=== PATIENT | female | born 1965 | race Two or more races ===

== ENCOUNTER → 2016-11-22 | Outpatient (CLI) | payer OTHER ==
[2016-11-22 08:45] LABS: Urine Bilirubin Negative (Negative); Urine Blood Negative /uL (Negative); Urine Color Yellow (Yellow); Urine Glucose Normal (Normal); Urine Ketone Negative (Negative); Urine Mucus FEW (None Seen); Urine Nitrite Negative (Negative); Urine RBC 1 /hpf (0 - 4); Urine Squamous Epithelial Cell FEW /hpf (<5); Urine Urobilinogen Normal (Negative); Urine pH 5.5 (5.0-8.0)
[2016-11-22 09:17] LABS: Bilirubin, Total 0.7 mg/dL (0.2-1.0); Calcium 9.2 mg/dL (8.5-10.1); Potassium 3.9 mmol/L (3.5-5.1); Total Protein 7.6 g/dL (6.4-8.2)
[2016-11-22 09:24] LABS: Basophils # (auto) 0 uL; Basophils % (auto) 0.8 % (0.0-2.0); DEFINITIVE VIEW TRANSMISSION; Eosinophils # (auto) 0.2 uL; Eosinophils % (auto) 3.5 % (0.0-7.0); Hemoglobin 12.8 g/dL (12.2-16.2); Lymphocytes # (auto) 1.5 uL; Lymphocytes % (auto) 24.1 % (10.0-50.0); Mean Corpuscular Hemoglobin 25.4 pg (28.0-32.0); Mean Corpuscular Volume 79.3 fL (80.0-100.0); Mean Platelet Volume 8.4 fL (7.4-10.4); Monocytes # (auto) 0.4 uL; Monocytes % (auto) 5.8 % (0.0-12.0); Neutrophils % (auto) 65.8 % (37.0-80.0); Platelet Count (auto) 250 10^3/uL (140-450); Red Cell Distribution Width 14.4 % (11.6-16.0); White Blood Cell 6.1 10^3/uL (4.4-10.8)
== END | disposition home or self-care (01) ==
LOC: LAB 06:34
PROVIDERS: ATTEND Family Medicine
DX: F33.9 Major depressive disorder, recurrent, unspecified (principal); Z72.0 Tobacco use; E78.5 Hyperlipidemia, unspecified; Z00.00 Encounter for general adult medical examination without abnormal findings
CPT/HCPCS: 36415; 80053; 80061; 81001; 82306; 82607; 83036; 84443; 85025; 86300

== ENCOUNTER → 2016-12-20 | Outpatient (CLI) | payer OTHER ==
[2016-12-20 16:48] LABS: Basophils # (auto) 0 uL; Basophils % (auto) 0.3 % (0.0-2.0); DEFINITIVE VIEW TRANSMISSION; Eosinophils # (auto) 0.3 uL; Eosinophils % (auto) 3.1 % (0.0-7.0); Hematocrit 31.9 % (36.0-46.0); Hemoglobin 10.6 g/dL (12.2-16.2); Lymphocytes # (auto) 2.1 uL; Lymphocytes % (auto) 25.2 % (10.0-50.0); Mean Corpuscular Hgb Conc. 33.3 g/dL (32.0-36.0); Mean Corpuscular Volume 77.9 fL (80.0-100.0); Mean Platelet Volume 7.7 fL (7.4-10.4); Monocytes # (auto) 0.6 uL; Monocytes % (auto) 6.7 % (0.0-12.0); Neutrophils # (auto) 5.5 uL; Neutrophils % (auto) 64.7 % (37.0-80.0); Platelet Count (auto) 383 10^3/uL (140-450); Red Cell Distribution Width 15.8 % (11.6-16.0); White Blood Cell 8.5 10^3/uL (4.4-10.8)
== END | disposition home or self-care (01) ==
LOC: LAB 15:36
PROVIDERS: ATTEND Obstetrics & Gynecology
DX: N93.9 Abnormal uterine and vaginal bleeding, unspecified (principal)
CPT/HCPCS: 36415; 83001; 83002; 84443; 85025

== ENCOUNTER → 2017-02-12 | Outpatient (CLI) | payer OTHER ==
[2017-02-12 16:14] LABS: Basophils # (auto) 0 uL; DEFINITIVE VIEW TRANSMISSION; Eosinophils # (auto) 0.3 uL; Hemoglobin 12.8 g/dL (12.2-16.2); Monocytes # (auto) 0.5 uL
[2017-02-12 16:27] LABS: Basophils % (auto) 0.4 % (0.0-2.0); Eosinophils % (auto) 3.6 % (0.0-7.0); Hematocrit 39.2 % (36.0-46.0); Lymphocytes % (auto) 27.3 % (10.0-50.0); Mean Corpuscular Hemoglobin 26.8 pg (28.0-32.0); Mean Corpuscular Hgb Conc. 32.7 g/dL (32.0-36.0); Mean Corpuscular Volume 81.8 fL (80.0-100.0); Monocytes % (auto) 7.1 % (0.0-12.0); Neutrophils # (auto) 4.6 uL; Neutrophils % (auto) 61.6 % (37.0-80.0); Platelet Count (auto) 293 10^3/uL (140-450); White Blood Cell 7.4 10^3/uL (4.4-10.8)
[2017-02-12 16:43] LABS: Albumin 3.7 g/dL (3.4-5.0); BUN/Creatinine Ratio 14.3; Bilirubin, Total 0.4 mg/dL (0.2-1.0); Calcium 8.9 mg/dL (8.5-10.1); Potassium 3.8 mmol/L (3.5-5.1); Total Protein 7.3 g/dL (6.4-8.2)
[2017-02-12 17:05] LABS: Urine Bilirubin Negative (Negative); Urine Color Yellow (Yellow); Urine Glucose Normal (Normal); Urine Ketone Negative (Negative); Urine Nitrite Negative (Negative); Urine RBC 792 /hpf (0 - 4); Urine Squamous Epithelial Cell FEW /hpf (<5); Urine Urobilinogen Normal (Negative)
[2017-02-12 17:26] LABS: INR 0.93 (0.9-1.15); Partial Thromboplastin Time 25.2 sec (22.64-33.71)
[2017-02-12 17:30] LABS: Urine Blood 2+ /uL (Negative)
[2017-02-12 19:08] LABS: Anisocytosis Slight; Ovalocytes FEW; Platelet Estimate Adequate
== END | disposition home or self-care (01) ==
LOC: LAB 15:39
PROVIDERS: ATTEND Family Medicine
DX: Z01.812 Encounter for preprocedural laboratory examination (principal)
CPT/HCPCS: 36415; 80053; 81001; 85025; 85610; 85730

== ENCOUNTER 2017-02-22 06:05 | Day surgery (SDC) | payer OTHER ==
[2017-02-19 12:29] LABS: Basophils # (auto) 0 uL; Basophils % (auto) 0.3 % (0.0-2.0); DEFINITIVE VIEW TRANSMISSION; Eosinophils # (auto) 0.2 uL; Hemoglobin 13.6 g/dL (12.2-16.2); Lymphocytes # (auto) 1.6 uL; Lymphocytes % (auto) 26.7 % (10.0-50.0); Mean Corpuscular Volume 81.8 fL (80.0-100.0); Mean Platelet Volume 8.1 fL (7.4-10.4); Monocytes # (auto) 0.4 uL; Neutrophils # (auto) 3.9 uL; Platelet Count (auto) 280 10^3/uL (140-450); Red Cell Distribution Width 19.5 % (11.6-16.0); White Blood Cell 6.2 10^3/uL (4.4-10.8)
[2017-02-19 12:35] LABS: Urine Bilirubin Negative (Negative); Urine Blood 1+ /uL (Negative); Urine Color Yellow (Yellow); Urine Glucose Normal (Normal); Urine Ketone Negative (Negative); Urine Nitrite Negative (Negative); Urine Urobilinogen Normal (Negative); Urine pH 6.5 (5.0-8.0)
[2017-02-19 12:55] LABS: INR 0.94 (0.9-1.15); Prothrombin Time 10.2 sec (9.37-12.3)
[2017-02-19 13:01] LABS: Albumin 3.8 g/dL (3.4-5.0); BUN/Creatinine Ratio 17.7; Bilirubin, Total 0.6 mg/dL (0.2-1.0); Calcium 9.2 mg/dL (8.5-10.1); Potassium 3.8 mmol/L (3.5-5.1); Total Protein 7.6 g/dL (6.4-8.2)
[2017-02-19 13:54] LABS: Platelet Estimate Adequate
[2017-02-19 13:55] LABS: Anisocytosis Slight
[~2017-02-22] VITALS: Ht 180.3 cm; Wt 97.1 kg
[~2017-02-22 06:05] MED LIST: ALPR0.5T PO
[2017-02-22] MEDS ORDERED: ceFAZolin 1GM/50ML D5W 50 ML IV ONE (06:41)
[2017-02-22] MEDS ORDERED: PROPOFOL 10 MG/ML 20 ML IV ONE (07:21)
[2017-02-22] MEDS ORDERED: MIDAZOLAM HCL 1MG/1ML-2 ML VIAL ONE (07:21)
[2017-02-22] MEDS ORDERED: fentaNYL CITRATE 100 MCG/2 ML VL ONE (07:21)
[2017-02-22] MEDS ORDERED: LACTATED RINGER'S 1,000 ML IV SCH (08:16)
[2017-02-22] MEDS ORDERED: HYDROmorphone HCL 2 MG/ML VL ONE (08:20)
[2017-02-22] MEDS: HYDROmorphone HCL 2 MG/ML VL IV PRN ×2 (08:27→08:55)
[2017-02-22] MEDS ORDERED: ONDANSETRON HCL 4 MG/2 ML VIAL IV ONE (08:30)
[2017-02-22] MEDS ORDERED: ePHEDrine SULFATE 50 MG/ML AMP IV PRN (08:30)
[2017-02-22] MEDS ORDERED: ONDANSETRON HCL 4 MG/2 ML VIAL IV PRN (08:30)
[2017-02-22] MEDS ORDERED: hydrALAZINE HCL 20 MG/ML VL IV PRN (08:30)
[2017-02-22 09:20] VITALS: BP 126/62
== END 2017-02-22 09:35 | disposition home or self-care (01) ==
LOC: SUR 06:05
PROVIDERS: ATTEND Obstetrics & Gynecology
DX: N92.0 Excessive and frequent menstruation with regular cycle (principal); N93.9 Abnormal uterine and vaginal bleeding, unspecified; Z98.51 Tubal ligation status; I10 Essential (primary) hypertension; E78.5 Hyperlipidemia, unspecified; F41.9 Anxiety disorder, unspecified; D64.9 Anemia, unspecified; F17.200 Nicotine dependence, unspecified, uncomplicated
CPT/HCPCS: 36415; 58563; 80053; 81003; 84702; 85025; 85610; 85730; 86850; 86900; 86901; 88305; J0690; J1170; J2250; J2704; J3010

== ENCOUNTER → 2017-08-27 | Outpatient (CLI) | payer OTHER ==
[2017-08-27 08:50] LABS: Basophils # (auto) 0 uL; Basophils % (auto) 0.5 % (0.0-2.0); Eosinophils # (auto) 0.2 uL; Eosinophils % (auto) 3.9 % (0.0-7.0); Hematocrit 43.9 % (36.0-46.0); Hemoglobin 15.1 g/dL (12.2-16.2); Lymphocytes # (auto) 1.8 uL; Lymphocytes % (auto) 28.8 % (10.0-50.0); Mean Corpuscular Hemoglobin 30.1 pg (28.0-32.0); Mean Corpuscular Hgb Conc. 34.5 g/dL (32.0-36.0); Mean Corpuscular Volume 87.5 fL (80.0-100.0); Mean Platelet Volume 7.5 fL (6.9-10.8); Monocytes # (auto) 0.3 uL; Monocytes % (auto) 5.4 % (0.0-12.0); Neutrophils # (auto) 3.9 uL; Neutrophils % (auto) 61.4 % (37.0-80.0); Platelet Count (auto) 223 10^3/uL (140-450); Red Cell Distribution Width 13.6 % (11.8-14.3); White Blood Cell 6.4 10^3/uL (4.4-10.8)
[2017-08-27 09:11] LABS: Urine Bilirubin Negative (Negative); Urine Blood 1+ /uL (Negative); Urine Color Yellow (Yellow); Urine Glucose Normal (Normal); Urine Ketone Negative (Negative); Urine Mucus FEW (None Seen); Urine Nitrite Negative (Negative); Urine RBC 4 /hpf (0 - 4); Urine Squamous Epithelial Cell MOD /hpf (<5)
[2017-08-27 09:13] LABS: Albumin 3.7 g/dL (3.4-5.0); BUN/Creatinine Ratio 14.3; Bilirubin, Total 0.8 mg/dL (0.2-1.0); Calcium 8.8 mg/dL (8.5-10.1); Potassium 3.7 mmol/L (3.5-5.1); Total Protein 7.6 g/dL (6.4-8.2)
== END | disposition home or self-care (01) ==
LOC: LAB 07:50
PROVIDERS: ATTEND Family Medicine
DX: E78.5 Hyperlipidemia, unspecified (principal); K21.9 Gastro-esophageal reflux disease without esophagitis; D64.9 Anemia, unspecified; E55.9 Vitamin D deficiency, unspecified; R79.89 Other specified abnormal findings of blood chemistry
CPT/HCPCS: 36415; 80053; 80061; 81001; 82306; 82607; 83036; 84443; 85025

== ENCOUNTER 2018-01-11 21:11 | Emergency (ER) | payer MEDICAID, OTHER ==
[~2018-01-11] VITALS: Ht 180.3 cm; Wt 95.7 kg
[2018-01-11 22:20] LABS: Basophils # (auto) 0.1 uL; Basophils % (auto) 0.6 % (0.0-2.0); Eosinophils # (auto) 0.4 uL; Eosinophils % (auto) 4.5 % (0.0-7.0); Hematocrit 41.7 % (36.0-46.0); Hemoglobin 14.3 g/dL (12.2-16.2); Lymphocytes # (auto) 2.6 uL; Mean Corpuscular Hgb Conc. 34.3 g/dL (32.0-36.0); Mean Corpuscular Volume 87.4 fL (80.0-100.0); Monocytes # (auto) 0.5 uL; Monocytes % (auto) 4.9 % (0.0-12.0); Nucleated Red Blood Cells % 0.5 %; Platelet Count (auto) 246 10^3/uL (140-450); Red Blood Cells 4.77 10^6/uL (4.0-5.20); Red Cell Distribution Width 12.4 % (11.8-14.3); White Blood Cell 9.4 10^3/uL (4.4-10.8)
[2018-01-11 22:44] VITALS: BP 131/85
[2018-01-11 22:44] LABS: Alanine Aminotransferase 30 U/L (13-56); Alkaline Phosphatase 72 U/L (45-117); Amylase 55 U/L (25-115); Anion Gap 9 (5-15); Aspartate Aminotransferase 20 U/L (15-37); BUN/Creatinine Ratio 18.1; Bilirubin, Total 0.5 mg/dL (0.2-1.0); Blood Urea Nitrogen 13 mg/dL (7-18); Calcium 8.9 mg/dL (8.5-10.1); Carbon Dioxide 25 mmol/L (21-32); Chloride 104 mmol/L (98-107); GFR African American 109 mL/min; GFR Non-African American 90 mL/min; Glucose 101 mg/dL (74-106); Lipase 303 U/L (73-393); Potassium 3.5 mmol/L (3.5-5.1); Sodium 138 mmol/L (136-145); Total Protein 7.5 g/dL (6.4-8.2)
== END 2018-01-12 00:47 | disposition home or self-care (01) ==
LOC: ER 21:11
DX: K80.20 Calculus of gallbladder without cholecystitis without obstruction (principal); Z79.899 Other long term (current) drug therapy
CPT/HCPCS: 36415; 74176; 80053; 82150; 83690; 84484; 85025; 93005

== ENCOUNTER 2018-01-14 08:46 | Inpatient (IN) | payer MEDICAID ==
[~2018-01-14] VITALS: Ht 175.3 cm; Wt 98.4 kg
[2018-01-14] MEDS ORDERED: PANTOPRAZOLE 40 MG/10 ML VIAL IV STA (09:41)
[2018-01-14] MEDS ORDERED: ONDANSETRON HCL 4 MG/2 ML VIAL IV ONE ×2 (09:45→14:15)
[2018-01-14] MEDS ORDERED: MORPHINE SULFATE 4 MG/ML SYR/VIAL IV ONE ×2 (09:45→16:00)
[2018-01-14 10:08] LABS: Basophils # (auto) 0 uL; Basophils % (auto) 0.5 % (0.0-2.0); Eosinophils # (auto) 0.3 uL; Eosinophils % (auto) 4.6 % (0.0-7.0); Hematocrit 40.9 % (36.0-46.0); Hemoglobin 13.8 g/dL (12.2-16.2); Lymphocytes # (auto) 1.7 uL; Lymphocytes % (auto) 26.6 % (10.0-50.0); Mean Corpuscular Hemoglobin 29.6 pg (28.0-32.0); Mean Corpuscular Hgb Conc. 33.8 g/dL (32.0-36.0); Mean Corpuscular Volume 87.7 fL (80.0-100.0); Monocytes # (auto) 0.4 uL; Neutrophils % (auto) 62.3 % (37.0-80.0); Platelet Count (auto) 225 10^3/uL (140-450); Red Blood Cells 4.66 10^6/uL (4.0-5.20); Red Cell Distribution Width 12.5 % (11.8-14.3); White Blood Cell 6.4 10^3/uL (4.4-10.8)
[2018-01-14 10:26] LABS: Albumin 3.7 g/dL (3.4-5.0); BUN/Creatinine Ratio 15.2; Bilirubin, Total 0.7 mg/dL (0.2-1.0); Calcium 8.6 mg/dL (8.5-10.1); Potassium 4.2 mmol/L (3.5-5.1); Total Protein 7.3 g/dL (6.4-8.2)
[2018-01-14] MEDS ORDERED: MORPHINE SULFATE 4 MG/ML SYR/VIAL IV PRN ×4 (12:00→14:45)
[2018-01-14] MEDS ORDERED: ONDANSETRON HCL 4 MG/2 ML VIAL IV PRN ×2 (12:00→14:45)
[2018-01-14] MEDS: SODIUM CHLORIDE 0.9% 1,000 ML IV SCH (12:03)
[2018-01-14 12:35] LABS: INR 0.95 (0.9-1.15); Partial Thromboplastin Time 27.7 sec (22.64-33.71); Prothrombin Time 10.3 sec (9.37-12.3)
[2018-01-14] MEDS ORDERED: ceFAZolin 1GM/50ML 50 ML IV ONE (13:05)
[2018-01-14] MEDS ORDERED: fentaNYL CITRATE 100 MCG/2 ML VL ONE (13:05)
[2018-01-14] MEDS ORDERED: MEPERIDINE HCL (50 MG/ML) 1 ML VIAL ONE (13:05)
[2018-01-14] MEDS ORDERED: MIDAZOLAM HCL 1MG/1ML-2 ML VIAL ONE (13:05)
[2018-01-14] MEDS ORDERED: ROCURONIUM 10MG/ML 10ML VIAL IV ONE (13:48)
[2018-01-14] MEDS ORDERED: DEXAMETHASONE SOD PHOS 10MG/1ML VIAL INJ ONE (13:48)
[2018-01-14] MEDS ORDERED: PROPOFOL 10 MG/ML 20 ML IV ONE (13:48)
[2018-01-14] MEDS ORDERED: HYDROmorphone HCL 2 MG/ML VL IV PRN (14:15)
[2018-01-14] MEDS ORDERED: LABETALOL HCL 5 MG/ML 4ML SYRINGE IV PRN (14:15)
[2018-01-14] MEDS ORDERED: KETOROLAC TROMETH 30 MG/ML 1ML VIAL IV ONE (14:15)
[2018-01-14] MEDS ORDERED: ePHEDrine SULFATE 50 MG/ML AMP IV PRN (14:15)
[2018-01-14] MEDS ORDERED: MIDAZOLAM HCL 1MG/1ML-2 ML VIAL IV PRN (14:15)
[2018-01-14] MEDS: POTASSIUM CHLORIDE 20 MEQ in D5W/LACTATED RINGERS 1,000 ML IV SCH (14:45)
[2018-01-14] MEDS: MIDAZOLAM HCL 1MG/1ML-2 ML VIAL IV PRN ×2 (15:18→15:38)
[2018-01-14] MEDS ORDERED: HYDROcodone-ACET 5/325MG TAB PO PRN (15:45)
[2018-01-14] MEDS ORDERED: LORazepam 2MG/ML-1ML VIAL IV PRN (15:45)
[2018-01-14 17:00] VITALS: BP 131/73
[2018-01-14] MEDS: ceFAZolin 1GM/50ML 50 ML IV SCH (21:07)
[2018-01-14 22:00] VITALS: BP 124/77
[2018-01-15] MEDS: POTASSIUM CHLORIDE 20 MEQ in D5W/LACTATED RINGERS 1,000 ML IV SCH ×2 (00:49→10:57)
[2018-01-15] MEDS: SODIUM CHLORIDE 0.9% 1,000 ML IV SCH (00:50)
[2018-01-15 05:00] VITALS: BP 117/73
[2018-01-15] MEDS: ceFAZolin 1GM/50ML 50 ML IV SCH (06:21)
[2018-01-15 07:15] LABS: INR 0.96 (0.9-1.15); Partial Thromboplastin Time 25.8 sec (22.64-33.71); Prothrombin Time 10.5 sec (9.37-12.3)
[2018-01-15 07:37] LABS: Basophils # (auto) 0 uL; Basophils % (auto) 0.2 % (0.0-2.0); Eosinophils # (auto) 0 uL; Hematocrit 37.8 % (36.0-46.0); Hemoglobin 12.8 g/dL (12.2-16.2); Lymphocytes % (auto) 8.6 % (10.0-50.0); Mean Corpuscular Hemoglobin 29.7 pg (28.0-32.0); Mean Corpuscular Hgb Conc. 33.8 g/dL (32.0-36.0); Mean Corpuscular Volume 87.9 fL (80.0-100.0); Monocytes # (auto) 0.4 uL; Monocytes % (auto) 3.2 % (0.0-12.0); Neutrophils # (auto) 10.1 uL; Platelet Count (auto) 229 10^3/uL (140-450); Red Blood Cells 4.31 10^6/uL (4.0-5.20); Red Cell Distribution Width 12.8 % (11.8-14.3); White Blood Cell 11.5 10^3/uL (4.4-10.8)
[2018-01-15 07:47] LABS: Albumin 3.4 g/dL (3.4-5.0); BUN/Creatinine Ratio 14.3; Bilirubin, Total 0.9 mg/dL (0.2-1.0); Calcium 8.4 mg/dL (8.5-10.1); Potassium 3.8 mmol/L (3.5-5.1); Total Protein 6.6 g/dL (6.4-8.2)
[2018-01-15 09:07] VITALS: BP 122/71
[2018-01-15 12:20] VITALS: BP 127/69
== END 2018-01-15 13:40 | disposition home or self-care (01) | DRG 263 ==
LOC: ER 08:46 → OVERFLOW 08:47 → EAST 16:20
PROVIDERS: ADMIT Internal Medicine; ATTEND Internal Medicine
PROC: 0FT44ZZ Resection of Gallbladder, Percutaneous Endoscopic Approach (ICD-10-PCS; principal; 2018-01-14 13:32)
DX: K80.12 Calculus of gallbladder with acute and chronic cholecystitis without obstruction (principal); E66.01 Morbid (severe) obesity due to excess calories; Z68.32 Body mass index [BMI] 32.0-32.9, adult; Z98.51 Tubal ligation status; D25.9 Leiomyoma of uterus, unspecified
CPT/HCPCS: 36415; 71045; 76705; 80053; 83690; 84443; 85025; 85610; 85730; 86850; 86900; 86901; 93005; 94761; 96374; 96375; C9113; J0690; J1100; J1885; J2250; J2405; J2704

== ENCOUNTER → 2018-04-29 | Outpatient (CLI) | payer OTHER ==
[2018-04-29 08:07] LABS: Urine Bacteria NONE SEEN /hpf (None Seen); Urine Blood Negative /uL (Negative); Urine Mucus FEW (None Seen); Urine Specific Gravity 1.028 (1.001-1.035); Urine WBC 1 /hpf (0 - 5)
[2018-04-29 08:30] LABS: Basophils # (auto) 0 uL; Basophils % (auto) 0.6 % (0.0-2.0); Eosinophils # (auto) 0.2 uL; Eosinophils % (auto) 3.4 % (0.0-7.0); Hematocrit 42.4 % (36.0-46.0); Hemoglobin 14.4 g/dL (12.2-16.2); Lymphocytes # (auto) 1.5 uL; Lymphocytes % (auto) 28.7 % (10.0-50.0); Mean Corpuscular Hemoglobin 29.3 pg (28.0-32.0); Mean Corpuscular Hgb Conc. 33.9 g/dL (32.0-36.0); Mean Corpuscular Volume 86.4 fL (80.0-100.0); Monocytes # (auto) 0.3 uL; Monocytes % (auto) 5.4 % (0.0-12.0); Neutrophils # (auto) 3.2 uL; Neutrophils % (auto) 61.9 % (37.0-80.0); Nucleated Red Blood Cells % 0.1 %; Platelet Count (auto) 231 10^3/uL (140-450); Red Blood Cells 4.91 10^6/uL (4.0-5.20); Red Cell Distribution Width 13.6 % (11.8-14.3); White Blood Cell 5.1 10^3/uL (4.4-10.8)
[2018-04-29 08:50] LABS: Albumin 3.7 g/dL (3.4-5.0); BUN/Creatinine Ratio 16.2; Bilirubin, Total 0.7 mg/dL (0.2-1.0); Calcium 8.7 mg/dL (8.5-10.1); Potassium 3.8 mmol/L (3.5-5.1); Total Protein 7.1 g/dL (6.4-8.2)
== END | disposition home or self-care (01) ==
LOC: LAB 07:42
PROVIDERS: ATTEND Family Medicine
DX: E78.5 Hyperlipidemia, unspecified (principal); K21.9 Gastro-esophageal reflux disease without esophagitis; I10 Essential (primary) hypertension; F41.9 Anxiety disorder, unspecified; Z79.899 Other long term (current) drug therapy
CPT/HCPCS: 36415; 80053; 80061; 81001; 82306; 83036; 84443; 85025

== ENCOUNTER 2023-03-11 07:08 | Inpatient (IN) | payer MEDICAID ==
[2023-03-07 15:38] LABS: Basophils # (auto) 0 10 ^3/uL (0-0.2); Basophils % (auto) 0.5 % (0.0-2.0); Eosinophils # (auto) 0.2 10 ^3/uL (0-0.8); Eosinophils % (auto) 2.6 % (0.0-7.0); Hematocrit 43.7 % (36.0-46.0); Hemoglobin 14.7 g/dL (12.2-16.2); Lymphocytes # (auto) 2.3 10 ^3/uL (0.4-5.4); Lymphocytes % (auto) 29.9 % (10.0-50.0); Mean Corpuscular Hemoglobin 29.3 pg (28.0-32.0); Mean Corpuscular Hgb Conc. 33.7 g/dL (32.0-36.0); Mean Corpuscular Volume 86.8 fL (80.0-100.0); Monocytes # (auto) 0.4 10 ^3/uL (0-1.3); Neutrophils # (auto) 4.8 10 ^3/uL (1.6-8.6); Nucleated Red Blood Cells % 0.8 %; Red Blood Cells 5.03 10^6/uL (4.0-5.20); Red Cell Distribution Width 13.2 % (11.8-14.3); White Blood Cell 7.8 10^3/uL (4.4-10.8)
[2023-03-07 15:51] LABS: Urine Bacteria NONE SEEN /hpf (None Seen); Urine Blood Negative /uL (Negative); Urine Mucus FEW (None Seen); Urine Specific Gravity 1.025 (1.001-1.035); Urine WBC 4 /hpf (0 - 5)
[2023-03-07 16:08] LABS: INR 0.93 (0.9-1.15); Partial Thromboplastin Time 25.9 sec (24.6-33.4)
[2023-03-07 16:10] LABS: Albumin 4.2 g/dL (3.4-5.0); Calcium 9.1 mg/dL (8.5-10.1); Potassium 3.7 mmol/L (3.5-5.1)
[2023-03-07 16:16] LABS: BUN/Creatinine Ratio 12.7 (10.0-20.0); Total Protein 7.4 g/dL (6.4-8.2)
[~2023-03-11] VITALS: Ht 180.3 cm; Wt 104.1 kg
[2023-03-11] MEDS ORDERED: ACETAMINOPHEN IV 100 ML IV ONE (07:28)
[2023-03-11] MEDS ORDERED: ceFAZolin 1GM/50ML 100 ML IV ONE (07:28)
[2023-03-11] MEDS ORDERED: PREGABALIN CAPSULE 75 MG CAP PO ONE (07:30)
[2023-03-11] MEDS ORDERED: ACETAMINOPHEN IV 1000 MG/100ML (10MG/ML) IV ONE (07:30)
[2023-03-11] MEDS ORDERED: CELECOXIB 100 MG CAP PO ONE (07:30)
[2023-03-11] MEDS ORDERED: LIDOCAINE 2% (LOCAL ANESTH.) PF 5ml SDV ONE (08:25)
[2023-03-11] MEDS ORDERED: DexAMETHasone SOD PHOS 10MG/1ML VIAL INJ ONE (08:25)
[2023-03-11] MEDS ORDERED: ONDANSETRON HCL 4 MG/2 ML VIAL ONE (08:25)
[2023-03-11] MEDS ORDERED: KETOROLAC TROMETH 30 MG/ML 1ML VIAL ONE ×2 (08:25→09:00)
[2023-03-11] MEDS ORDERED: PROPOFOL 10 MG/ML 20 ML IV ONE ×3 (08:25→10:30)
[2023-03-11] MEDS ORDERED: GLYCOPYRROLATE 0.2 MG/ML 1ML VIAL ONE (08:25)
[2023-03-11] MEDS ORDERED: TRANEXAMIC ACID 20 ML ONE (08:48)
[2023-03-11] MEDS ORDERED: BUPIVACAINE 0.25% INJ 50ML VIAL ONE (08:48)
[2023-03-11] MEDS ORDERED: VANCOMYCIN HCL 1000 MG VL ONE (08:49)
[2023-03-11] MEDS ORDERED: LIDOCAINE 2%HCL (LOCAL ANESTH.) INJ 10ml MDV ONE (08:56)
[2023-03-11] MEDS ORDERED: DexAMETHasone SOD PHOS 4 MG/1ML SDV INJ ONE (08:56)
[2023-03-11] MEDS ORDERED: BUPIVACAINE W/ EPINEPH 0.25% INJ 50ML MDV ONE (08:56)
[2023-03-11] MEDS ORDERED: MORPHINE SULF PF 5 MG/10 ML VIAL ONE (09:03)
[2023-03-11] MEDS ORDERED: diphenhdrAMINE HCL 50 MG/1 ML VL ONE (09:37)
[2023-03-11] MEDS ORDERED: ONDANSETRON HCL 4 MG/2 ML VIAL IV PRN (10:45)
[2023-03-11] MEDS ORDERED: MORPHINE SULFATE INJ 2 MG/ml SYRG IV PRN (10:45)
[2023-03-11] MEDS ORDERED: NITROGLYCERIN 0.4 MG SL TAB SL PRN (10:45)
[2023-03-11] MEDS: LACTATED RINGER'S 1,000 ML IV SCH ×2 (10:45→15:55)
[2023-03-11] MEDS ORDERED: HYDROmorphone HCL 2 MG/ML VL/or syr IV PRN (10:45)
[2023-03-11] MEDS ORDERED: ACETAMINOPHEN 325 MG TAB PO PRN (10:45)
[2023-03-11] MEDS ORDERED: BENAZEPRIL HCL 10 MG TAB PO PRN (10:45)
[2023-03-11] MEDS ORDERED: diphenhdrAMINE HCL 25 MG CAP PO PRN (12:45)
[2023-03-11 14:00] VITALS: BP 100/52
[2023-03-11] MEDS: ceFAZolin 1GM/50ML 50 ML IV SCH ×2 (15:52→21:57)
[2023-03-11] MEDS: SODIUM CHLOR 0.9% PF (SALINE LOCK) 10ML VIAL/SYR IV SCH ×2 (15:52→21:58)
[2023-03-11] MEDS: OXYCODONE W/ ACETAMINOPHEN 5/325MG TABLET PO PRN (15:56)
[2023-03-11 16:00] VITALS: BP 125/62
[2023-03-11 16:10] VITALS: BP 125/62
[2023-03-11 18:00] VITALS: BP 125/62
[2023-03-11 20:00] VITALS: BP 91/45
[2023-03-11 22:00] VITALS: BP 91/45
[2023-03-11] MEDS: ALPRAZolam 0.5 MG TAB PO SCH (22:00)
[2023-03-11] MEDS: DOCUSATE SOD 100 MG CAP PO SCH (22:00)
[2023-03-12] VITALS (19 sets, daily range): BP systolic 90–124; BP diastolic 36–61
[2023-03-12] MEDS: OXYCODONE W/ ACETAMINOPHEN 5/325MG TABLET PO PRN ×2 (00:29→10:13)
[2023-03-12] MEDS ORDERED: ceFAZolin 1GM/50ML 50 ML IV SCH (05:45)
[2023-03-12] MEDS: SODIUM CHLOR 0.9% PF (SALINE LOCK) 10ML VIAL/SYR IV SCH ×3 (06:20→21:47)
[2023-03-12 06:22] LABS: Albumin 3.2 g/dL (3.4-5.0); Calcium 8.5 mg/dL (8.5-10.1); Potassium 3.5 mmol/L (3.5-5.1)
[2023-03-12 06:26] LABS: BUN/Creatinine Ratio 23.3 (10.0-20.0); Total Protein 5.5 g/dL (6.4-8.2)
[2023-03-12 06:27] LABS: Basophils # (auto) 0 10 ^3/uL (0-0.2); Basophils % (auto) 0.1 % (0.0-2.0); Eosinophils # (auto) 0 10 ^3/uL (0-0.8); Lymphocytes # (auto) 1.1 10 ^3/uL (0.4-5.4); Monocytes # (auto) 0.9 10 ^3/uL (0-1.3); Nucleated Red Blood Cells % 0.1 %
[2023-03-12 06:52] LABS: Hematocrit 33.6 % (36.0-46.0); Mean Corpuscular Hemoglobin 28.5 pg (28.0-32.0); Mean Corpuscular Hgb Conc. 32.8 g/dL (32.0-36.0); Mean Corpuscular Volume 86.7 fL (80.0-100.0); Monocytes % (auto) 6.7 % (0.0-12.0); Neutrophils # (auto) 11.3 10 ^3/uL (1.6-8.6); Neutrophils % (auto) 85.2 % (37.0-80.0); Red Blood Cells 3.87 10^6/uL (4.0-5.20); Red Cell Distribution Width 13.4 % (11.8-14.3); White Blood Cell 13.3 10^3/uL (4.4-10.8)
[2023-03-12] MEDS: LACTATED RINGER'S 1,000 ML IV SCH ×2 (07:49→18:05)
[2023-03-12] MEDS: PANTOPRAZOLE 40 MG TAB PO SCH (08:17)
[2023-03-12] MEDS: ENOXAPARIN SOD 40 MG/0.4 ML SYRINGE SC SCH (08:17)
[2023-03-12] MEDS: DOCUSATE SOD 100 MG CAP PO SCH ×2 (08:17→20:33)
[2023-03-12] MEDS: KETOROLAC TROMETH 30 MG/ML 1ML VIAL IV PRN (20:33)
[2023-03-12] MEDS: ALPRAZolam 0.5 MG TAB PO SCH (21:48)
[2023-03-13] MEDS: LACTATED RINGER'S 1,000 ML IV SCH ×2 (02:45→12:45)
[2023-03-13 05:00] VITALS: BP 122/51
[2023-03-13] MEDS: KETOROLAC TROMETH 30 MG/ML 1ML VIAL IV PRN (05:33)
[2023-03-13 05:47] LABS: Basophils # (auto) 0 10 ^3/uL (0-0.2); Basophils % (auto) 0.2 % (0.0-2.0); Eosinophils # (auto) 0.1 10 ^3/uL (0-0.8); Hematocrit 29.5 % (36.0-46.0); Hemoglobin 10.4 g/dL (12.2-16.2); Lymphocytes # (auto) 2.1 10 ^3/uL (0.4-5.4); Lymphocytes % (auto) 28.7 % (10.0-50.0); Mean Corpuscular Hemoglobin 30.9 pg (28.0-32.0); Mean Corpuscular Hgb Conc. 35.2 g/dL (32.0-36.0); Mean Corpuscular Volume 87.7 fL (80.0-100.0); Monocytes # (auto) 0.5 10 ^3/uL (0-1.3); Monocytes % (auto) 6.4 % (0.0-12.0); Neutrophils # (auto) 4.7 10 ^3/uL (1.6-8.6); Neutrophils % (auto) 63.7 % (37.0-80.0); Red Blood Cells 3.36 10^6/uL (4.0-5.20); Red Cell Distribution Width 13.1 % (11.8-14.3); White Blood Cell 7.4 10^3/uL (4.4-10.8)
[2023-03-13 06:06] LABS: BUN/Creatinine Ratio 27.1 (10.0-20.0); Calcium 8.3 mg/dL (8.5-10.1); Potassium 3.3 mmol/L (3.5-5.1)
[2023-03-13] MEDS: SODIUM CHLOR 0.9% PF (SALINE LOCK) 10ML VIAL/SYR IV SCH ×2 (06:20→14:00)
[2023-03-13 09:00] VITALS: BP 111/49
[2023-03-13] MEDS ORDERED: HYDROcodone-ACET 5/325MG TAB PO ONE (09:30)
[2023-03-13] MEDS: ENOXAPARIN SOD 40 MG/0.4 ML SYRINGE SC SCH (09:58)
[2023-03-13] MEDS: PANTOPRAZOLE 40 MG TAB PO SCH (09:58)
[2023-03-13] MEDS: DOCUSATE SOD 100 MG CAP PO SCH (09:58)
[2023-03-13] MEDS ORDERED: POTASSIUM CHL 20 Meq TABLET PO ONE (10:00)
== END 2023-03-13 14:35 | disposition home health service (06) | DRG 324 ==
LOC: SUR 07:08 → OVERFLOW 10:45 → CENTRAL 14:07
PROVIDERS: ADMIT Orthopaedic Surgery Adult Reconstructive Orthopaedic Surgery; ATTEND Internal Medicine
PROC: 8E0YXBZ Computer Assisted Procedure of Lower Extremity (ICD-10-PCS; 2023-03-11)
PROC: 0SR90JZ Replacement of Right Hip Joint with Synthetic Substitute, Open Approach (ICD-10-PCS; principal; 2023-03-11 09:12)
DX: M16.11 Unilateral primary osteoarthritis, right hip (principal); E87.6 Hypokalemia; Y90.9 Presence of alcohol in blood, level not specified; F10.10 Alcohol abuse, uncomplicated; Z90.49 Acquired absence of other specified parts of digestive tract; Z71.6 Tobacco abuse counseling; Z72.0 Tobacco use
CPT/HCPCS: 36415; 72170; 73501; 80048; 80053; 81001; 85025; 85610; 85730; 86850; 86900; 86901; 97110; 97116; 97163; 97530; G0378; J0131; J0690; J1100; J1885; J2001; J2405; J2704; J3490

== ENCOUNTER 2024-05-11 05:46 | Inpatient (IN) | payer MEDICAID ==
[~2024-05-11] VITALS: Ht 180.3 cm; Wt 98.3 kg
[2024-05-11] VITALS (17 sets, daily range): BP systolic 92–122; BP diastolic 51–77; PULSE 68–97; RESP 16–20; TEMP 97.7–97.9; O2SAT 91–100
[~2024-05-11 05:46] MED LIST changes: +IBU600T PO
[2024-05-11] MEDS: VANCOMYCIN HCL 1000 MG VL ONE (07:06)
[2024-05-11] MEDS: TETRACAINE 1% INJ 2 ML VIAL IJ ONE (07:42)
[2024-05-11] MEDS ORDERED: MORPHINE SULF PF 5 MG/10 ML VIAL ONE (07:42)
[2024-05-11] MEDS ORDERED: fentaNYL CITRATE 100 MCG/2 ML VL ONE (07:42)
[2024-05-11] MEDS ORDERED: EPINEPHrine HCL 1 MG/1 ML AMP ONE (07:43)
[2024-05-11] MEDS ORDERED: MIDAZOLAM HCL 2MG/2ML 2ml VIAL (1mg/ml) ONE (07:43)
[2024-05-11] MEDS ORDERED: LIDOCAINE 1% INJ PF 5ML AMP ONE (07:43)
[2024-05-11] MEDS ORDERED: SODIUM CHLORIDE LOCK 10 ML ONE (07:43)
[2024-05-11] MEDS ORDERED: BUPIVACAINE/DEXTROSE MPF 0.75% 2 ML AMP IT ONE (07:43)
[2024-05-11] MEDS ORDERED: KETAMINE 50mg/ML 1ml syringe ONE ×2 (07:43→08:20)
[2024-05-11] MEDS ORDERED: ONDANSETRON HCL 4 MG/2 ML VIAL ONE (07:43)
[2024-05-11] MEDS: KETOROLAC TROMETH 30 MG/ML 1ML VIAL ONE (07:56)
[2024-05-11] MEDS: ceFAZolin 2 GM/D5W50ml 50 ML IV ONE (07:56)
[2024-05-11] MEDS: BUPIVACAINE 0.25% INJ 50ML VIAL ONE (07:56)
[2024-05-11] MEDS: TRANEXAMIC ACID 20 ML ONE (07:56)
[2024-05-11] MEDS: MORPHINE SULF PF 5 MG/10 ML VIAL ONE (07:56)
[2024-05-11] MEDS ORDERED: PROPOFOL 10 MG/ML 20 ML IV ONE (08:42)
[2024-05-11] MEDS: CEFEPIME 1GM/ 50ML 50 ML IV ONE ×2 (08:42→08:45)
[2024-05-11] MEDS ORDERED: NITROGLYCERIN 0.4 MG SL TAB SL PRN (09:15)
[2024-05-11] MEDS: LACTATED RINGER'S 1,000 ML IV SCH (09:15)
[2024-05-11] MEDS ORDERED: ONDANSETRON HCL 4 MG/2 ML VIAL IV PRN (09:15)
[2024-05-11] MEDS ORDERED: HYDROmorphone HCL 2 MG/ML VL/or syr IV PRN ×3 (09:15→09:45)
[2024-05-11] MEDS ORDERED: ceFAZolin 1GM/50ML 50 ML IV SCH (09:15)
[2024-05-11] MEDS ORDERED: MORPHINE SULFATE INJ 2 MG/ml SYRG IV PRN ×2 (09:15→09:45)
[2024-05-11] MEDS: METOCLOPRAMIDE HCL 5MG/ml INJ 2ml VIAL IV ONE (09:45)
[2024-05-11] MEDS: KETOROLAC TROMETH 30 MG/ML 1ML VIAL IV ONE (09:45)
[2024-05-11] MEDS ORDERED: diphenhdrAMINE HCL 50 MG/1 ML VL IV PRN (09:45)
[2024-05-11] MEDS ORDERED: NALOXONE HCL 0.4 MG/ML VIAL IV PRN (09:45)
[2024-05-11] MEDS: oxyCODONE ER 10 MG TAB PO SCH (10:00)
[2024-05-11] MEDS: ENOXAPARIN SOD 40 MG/0.4 ML SYRINGE SC SCH (10:00)
[2024-05-11] MEDS: DOCUSATE SOD 100 MG CAP PO SCH (10:00)
[2024-05-11] MEDS: ceFAZolin 1GM/50ML 50 ML IV SCH (14:31)
[2024-05-11] MEDS: SODIUM CHLOR 0.9% PF (SALINE LOCK) 10ML VIAL/SYR IV SCH (14:31)
[2024-05-11] MEDS: CEFEPIME 1GM/ 50ML 50 ML IV SCH (20:58)
[2024-05-11] MEDS: ALPRAZolam 0.5 MG TAB PO SCH (22:00)
[2024-05-12] VITALS (29 sets, daily range): BP systolic 98–122; BP diastolic 45–88; PULSE 63–100; RESP 17–18; TEMP 97.6–99.5; O2SAT 95–99
[2024-05-12] MEDS: OXYCODONE W/ ACETAMINOPHEN 5/325MG TABLET PO PRN (02:20)
[2024-05-12 06:59] LABS: Hematocrit 32.7 % (36.0-46.0); Hemoglobin 11.5 g/dL (12.2-16.2)
[2024-05-12 07:04] LABS: Alanine Aminotransferase 23 U/L (7-40); Albumin 3.6 g/dL (3.2-4.8); Alkaline Phosphatase 61 U/L (46-116); Anion Gap 5 (5-15); Aspartate Aminotransferase 32 U/L (13-40); Bilirubin, Total 1.9 mg/dL (0.2-1.0); Blood Urea Nitrogen 6 mg/dL (9-23); Calcium 8.8 mg/dL (8.7-10.4); Carbon Dioxide 27 mmol/L (20-30); Chloride 105 mmol/L (98-107); Glucose 117 mg/dL (74-106); Potassium 3.4 mmol/L (3.5-5.1); Sodium 137 mmol/L (136-145); Total Protein 5.4 g/dL (5.7-8.2)
[2024-05-12] MEDS: LACTATED RINGER'S 1,000 ML IV SCH (10:15)
[2024-05-12] MEDS ORDERED: HYDROmorphone HCL 2 MG/ML VL/or syr IV PRN (10:15)
[2024-05-12] MEDS: POTASSIUM CHL 20 Meq TABLET PO ONE (13:10)
[2024-05-12] MEDS ORDERED: DICL1GEL59 EXT (17:35)
[2024-05-12] MEDS ORDERED: HYDR1CAP27 PO (17:35)
[2024-05-13 05:00] VITALS: BP 117/54; PULSE 90; RESP 17; TEMP 98.1; O2SAT 97
[2024-05-13 07:17] LABS: Basophils # (auto) 0 10 ^3/uL (0-0.2); Basophils % (auto) 0.1 % (0.0-2.0); Eosinophils # (auto) 0.1 10 ^3/uL (0-0.8); Lymphocytes # (auto) 0.9 10 ^3/uL (0.4-5.4); Lymphocytes % (auto) 9.5 % (10.0-50.0); Mean Corpuscular Hemoglobin 31.4 pg (28.0-32.0); Mean Corpuscular Hgb Conc. 35.5 g/dL (32.0-36.0); Mean Corpuscular Volume 88.5 fL (80.0-100.0); Monocytes # (auto) 0.6 10 ^3/uL (0-1.3); Neutrophils # (auto) 7.6 10 ^3/uL (1.6-8.6); Neutrophils % (auto) 82.4 % (37.0-80.0); Red Cell Distribution Width 12.2 % (11.8-14.3); White Blood Cell 9.2 10^3/uL (4.4-10.8)
[2024-05-13 07:20] LABS: Anion Gap 6 (5-15); Carbon Dioxide 27 mmol/L (20-30); Chloride 106 mmol/L (98-107); Potassium 3.5 mmol/L (3.5-5.1); Sodium 139 mmol/L (136-145)
[2024-05-13 07:21] LABS: Calcium 9.2 mg/dL (8.7-10.4)
[2024-05-13 07:26] LABS: Glucose 122 mg/dL (74-106)
[2024-05-13 07:32] LABS: BUN/Creatinine Ratio 9.8 (10.0-20.0); Blood Urea Nitrogen < 5 mg/dL (9-23)
[2024-05-13 07:49] VITALS: PULSE 100; RESP 17; O2SAT 95
[2024-05-13 08:00] VITALS: PULSE 88
[2024-05-13 09:24] VITALS: BP 111/53; PULSE 86; RESP 18; TEMP 98.2; O2SAT 95
[2024-05-13 11:18] VITALS: BP 117/54; PULSE 90; RESP 17; TEMP 98.1; O2SAT 97
[2024-05-13 13:00] VITALS: BP 115/59; PULSE 91; RESP 18; TEMP 98.2; O2SAT 94
== END 2024-05-13 15:27 | disposition home health service (06) | DRG 324 ==
LOC: SUR 05:46 → TELE 09:14 → TELE-CENTR 12:10 → CENTRAL 05-13 02:44
PROVIDERS: ADMIT Orthopaedic Surgery Adult Reconstructive Orthopaedic Surgery; ATTEND Internal Medicine
PROC: 0SRB06Z Replacement of Left Hip Joint with Oxidized Zirconium on Polyethylene Synthetic Substitute, Open Approach (ICD-10-PCS; principal; 2024-05-11 07:56)
DX: M16.12 Unilateral primary osteoarthritis, left hip (principal); E87.6 Hypokalemia; F41.9 Anxiety disorder, unspecified; Z72.0 Tobacco use; Z79.899 Other long term (current) drug therapy
CPT/HCPCS: 36415; 72170; 80048; 80053; 85014; 85018; 85025; 86850; 86900; 86901; 93005; 97110; 97116; 97163; G0378; J0171; J1885; J2250; J2405; J2704; J3490